=== PATIENT | female | born 1940 | race Caucasian/White ===

== ENCOUNTER 2017-11-19 12:44 | Emergency (ER) | payer MEDICARE, MEDICAID ==
[~2017-11-19] VITALS: Ht 160 cm; Wt 67.0 kg
[~2017-11-19 12:44] MED LIST: ACET-2178 PO
[2017-11-19] MEDS ORDERED: ACETAMINOPHEN 325MG TABLET PO ONE (15:15)
[2017-11-19] MEDS ORDERED: KETOROLAC 60MG/2ML VIAL IM ONE (15:15)
[2017-11-19 16:25] LABS: CLARITY URINE CLEAR (CLEAR); COLOR URINE YELLOW (YELLOW); KETONES URINE NEGATIVE (NEGATIVE); LEUKOCYTE ESTERASE URINE TRACE (NEGATIVE); NITRITE URINE NEGATIVE (NEGATIVE); OCCULT BLOOD URINE NEGATIVE (NEGATIVE); PROTEIN URINE NEGATIVE (NEGATIVE); SPECIFIC GRAVITY URINE 1.024 (1.005-1.030); UROBILINOGEN URINE 0.2 E.U./dL (0.2-1.0)
[2017-11-19 18:43] VITALS: BP 165/57
== END 2017-11-19 19:22 | disposition home or self-care (01) ==
LOC: ER 15:19
DX: N39.0 Urinary tract infection, site not specified (principal); R51 Headache; I10 Essential (primary) hypertension; M19.90 Unspecified osteoarthritis, unspecified site
CPT/HCPCS: 81003; 96372; 99283; J1885

== ENCOUNTER 2017-12-24 21:52 | Observation (INO) | payer MEDICARE, MEDICAID ==
[~2017-12-24] VITALS: Ht 167.6 cm; Wt 70.8 kg
[2017-12-24] MEDS ORDERED: NITROGLYCERIN OINT 1GM/INCH UDPKT TD STA (23:02)
[2017-12-24] MEDS ORDERED: ASPIRIN 81MG TABLET PO ONE (23:15)
[2017-12-24 23:42] LABS: BASOPHILS % 0.1 % (0.0-2.0); EOSINOPHILS % 0.3 % (0.0-5.0); HEMATOCRIT. 34.8 % (36.0-48.0); HEMOGLOBIN. 12.1 g/dL (12.0-16.0); LYMPHOCYTES % 36.3 % (20.0-50.0); MEAN CORPUSCULAR HEMOGLOBIN 30.4 pg (28.0-32.0); MEAN CORPUSCULAR VOLUME 87.7 fL (81.0-99.0); MEAN PLATELET VOLUME 7.6 fl (7.4-10.4); MONOCYTES % 4.1 % (2.0-8.0); NEUTROPHILS % 59.2 % (40.0-76.0); PLATELET 66 x1000/uL (130-400); RED BLOOD CELL COUNT 3.97 mill/uL (4.2-5.4); RED CELL DISTRIBUTION WIDTH 16.8 % (11.6-14.6)
[2017-12-24 23:53] LABS: CHLORIDE 108 mEq/L (98-107)
[2017-12-25] MEDS ORDERED: SODIUM CHLORIDE 0.9% 1,000 ML IV SCH (00:03)
[2017-12-25] MEDS ORDERED: MORPHINE SULFATE 2 MG/ML CPJ (NOT FOR IM USE) IV PRN (06:30)
[2017-12-25] MEDS ORDERED: ENOXAPARIN 40MG/0.4ML SYR SUBCUT SCH (06:30)
[2017-12-25] MEDS ORDERED: ACETAMINOPHEN 325MG TABLET PO PRN (06:30)
[2017-12-25] MEDS ORDERED: MAGNESIUM/ALUMINUM HYDROXIDE/SIMETHICONE 30ML UDC PO PRN (06:30)
[2017-12-25] MEDS ORDERED: CLONIDINE 0.1MG TABLET PO PRN (06:30)
[2017-12-25] MEDS ORDERED: HYDROCODONE/ACETAMINOPHEN 5/325MG TABLET PO PRN (06:30)
[2017-12-25] MEDS ORDERED: IPRATROPIUM/ALBUTEROL 0.5-3(2.5)MG/3ML NEB INH PRN (06:30)
[2017-12-25] MEDS ORDERED: ONDANSETRON HCL 4MG/2ML VIAL IV PRN (06:30)
[2017-12-25 06:31] VITALS: BP 139/68
[2017-12-25 08:00] VITALS: BP 126/62
[2017-12-25] MEDS ORDERED: ASPIRIN 81MG EC TABLET PO SCH (09:00)
[2017-12-25] MEDS ORDERED: AMLODIPINE 10MG TABLET PO SCH (09:00)
[2017-12-25] MEDS ORDERED: OMEPRAZOLE 20MG CAPSULE EXTENDED RELEASE PO SCH (10:30)
[2017-12-25] MEDS ORDERED: POTASSIUM CHLORIDE 20MEQ TABLET SR PO NR (10:30)
[2017-12-25] MEDS ORDERED: AMLODIPINE 5MG TABLET PO SCH (10:30)
[2017-12-25] MEDS ORDERED: LOSA50TA20 MT (11:04)
[2017-12-25] MEDS ORDERED: AMLO2.5T45 MT (11:04)
[2017-12-25] MEDS ORDERED: OMEP20CA10 MT (11:04)
[2017-12-25 12:00] VITALS: BP 150/62
[2017-12-25 12:58] VITALS: BP 150/62
== END 2017-12-25 13:52 | disposition home or self-care (01) ==
LOC: ER 21:52 → 7WST 12-25 00:04 → INTOOBSV 12-25 00:04 → EDBEDREQ 12-25 00:10 → ENRESERV 12-25 04:36 → SUPCPDRO 12-25 06:28
PROVIDERS: ADMIT Internal Medicine Nephrology; ATTEND Internal Medicine Nephrology
DX: H11.31 Conjunctival hemorrhage, right eye (principal); K21.9 Gastro-esophageal reflux disease without esophagitis; R07.89 Other chest pain; I83.90 Asymptomatic varicose veins of unspecified lower extremity; D69.6 Thrombocytopenia, unspecified; D46.9 Myelodysplastic syndrome, unspecified; D72.819 Decreased white blood cell count, unspecified; E87.6 Hypokalemia; I10 Essential (primary) hypertension; G89.29 Other chronic pain; M54.9 Dorsalgia, unspecified; Z90.710 Acquired absence of both cervix and uterus; Z91.19 Patient's noncompliance with other medical treatment and regimen
CPT/HCPCS: 36415; 71045; 80048; 83690; 84484; 85025; 93005; 96360; 96361; 99285; G0378; J7030